=== PATIENT | female | born 1955 | race Caucasian/White ===

== ENCOUNTER 2024-04-19 16:08 | Emergency (ER) | payer OTHER, SELFPAY ==
--- NOTE | ~2024-04-19 | XR_ITS ---
AP view of the pelvis and AP and lateral views of the left hip Clinical history: Pain Findings: No acute fracture or dislocation is seen. Osseous alignment is anatomic. There is mild dege nerative change of both hip joints. Soft tissues are unremarkable. 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 Reviewed, dictated and finalized at location . 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
--- NOTE | ~2024-04-19 | CT_ITS ---
Non-contrast CT scan of the Pelvis Clinical indication: Left hip pain, status post fall Technique: 2.5 mm axial scans were obtained through the pelvis without intravenous or oral contrast. Dose reduction technique was used on this scan by utilizing automated exposure control and iterative reconstruction technique. The dose-length product (DLP) was 756.28 mGy-cm. Findings: Urinary bladder unremarkable. No pelvic mass seen. Status post hysterectomy. No ascites. Si gmoid diverticulosis noted. No pelvic lymphadenopathy seen. No acute fracture or dislocation seen. There is minimal degenerative change of both hip joints. SI dereck ints are intact. No joint effusion evident. Visualized musculature unremarkable. No soft tissue mass or fluid collection seen. There is asymmetric fatty atrophy of the right rectus femoris muscle belly. Impression: No acute fracture or dislocation. 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 Fatty atrophy of the right rectus femoris muscle belly. Reviewed, dictated and finalized at [facility]. Impression: No acute fracture or dislocation. 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 Fatty atrophy of the right rectus femoris muscle belly.
[2024-04-19 16:14] VITALS: BP 121/73; PULSE 91; RESP 15; TEMP 36.7; O2SAT 97
[2024-04-19] MEDS: HYDROcodone/acetaminophen (*CRX) 5-325 MG TABLET 1 TAB PO (17:11)
--- NOTE | 2024-04-19 18:17 | ED.LOWEXIN ---
HPI - Extremity Injury (Lower) General Chief Complaint: Extremity Injury, Lower Stated Complaint: fall, left hip pain Time Seen by Provider: 04/19/24 16:11 Source: patient Mode of arrival: ambulatory Limitations: no limitations History of Present Illness HPI Narrative: Patient is a 69-year-old female who presents the ED with report of left hip pain. Patient reports she slipped and fell off of a retaining wall and landed on her left side. She felt a pop in her hip. She complains of pain to her left hip since then. She has been able to ambulate, but has pain with this and has required a cane for assistance. Denies numbness. Denies head injury or LOC. Denies neck or back pain. She did sustain a small abrasion to her left lower leg. Related Data Allergies Allergy/AdvReac Type Severity Reaction Status Date / Time No Known Allergies Allergy Verified 04/19/24 16:18 Review of Systems Review of Systems: CONSTITUTIONAL: Denies fever, chills, or sweats. SKIN: See HPI MUSCULOSKELETAL: See HPI. NEUROLOGIC: Denies headache, dizziness, numbness, or weakness. All systems reviewed & are unremarkable except as noted in HPI and below Exam Narrative: GENERAL: Well appearing, obese with BMI of 35.5, non-toxic, in no acute distress. HEAD: Normocephalic, atraumatic. RESPIRATORY: Airway patent, respirations nonlabored. Clear to auscultation bilaterally, no rales, rhonchi, wheezing. CARDIOVASCULAR: Regular rate and rhythm without murmurs, rubs, or gallops. Pedal pulses intact. MUSCULOSKELETAL: Moves all extremities. No gross deformities. TTP over L lateral and posterior hip joint, upper buttock region reproducing pain. Sensation intact. No midline thoracic or lumbar spinal tenderness. SKIN: Warm, dry, normal color. Small skin abrasion to L lower leg. No active bleeding. NEURO: A&O X3. Speech clear. Steady gait. No ataxic movements. PSYCHIATRIC: Appropriate mood and affect. Normal interaction. Course Vital Signs Vital signs: Vital Signs Temperature 98.1 F 04/19/24 16:14 Pulse Rate 91 04/19/24 16:14 Respiratory Rate 15 04/19/24 16:14 Blood Pressure 121/73 04/19/24 16:14 Pulse Oximetry 97 04/19/24 16:14 Oxygen Delivery Room Air 04/19/24 16:14 Temperature 98.1 F 04/19/24 16:14 Pulse Rate 67 04/19/24 19:33 Respiratory Rate 18 04/19/24 19:33 Blood Pressure 134/86 04/19/24 19:33 Pulse Oximetry 99 04/19/24 19:33 Oxygen Delivery Room Air 04/19/24 16:14 MDM - Extremity Injury (Lower) MDM Narrative Medical decision making narrative: Patient presented to ED status post ground level fall, complaining of pain to left hip. Initial x-ray of left hip/pelvis negative for acute fracture. CT scan of pelvis was obtained also negative for acute fracture. No significant abnormalities noted. Patient updated on imaging results. She denies any other areas of pain. Patient?s injury is consistent with musculoskeletal etiology. No signs of neurologic or vascular compromise on physical examination. Compartments are soft without signs of compartment syndrome. Patient is felt to be stable for discharge home and further outpatient management and treatment. Advised patient she may be sore over the next several days. She does have a cane and a walker that she can use for assistance with ambulation. Will prescribe short course of pain medication for home use, advised patient to continue ice/Tylenol. Recommended she follow up with PCP for further evaluation. Given strict return precautions. She agrees with plan, feels comfortable with discharge home. Discharged in stable condition. Medical Records Attestation: I reviewed the patient's medical records. 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 Pelvis CT 0
[2024-04-19 19:33] VITALS: BP 134/86; PULSE 67; RESP 18; O2SAT 99
== END 2024-04-19 19:34 | disposition home or self-care (01) ==
PROVIDERS: Emergency Provider Physician Assistant
DX: S70.02XA Contusion of left hip, initial encounter (principal); W17.89XA Other fall from one level to another, initial encounter
CPT/HCPCS: 72192; 73502; 99284; A9270